=== PATIENT | female | born 1970 | race Caucasian/White ===

== ENCOUNTER → 2021-04-13 | Outpatient (CLI) | payer SELFPAY ==
[~2021-04-13] MED LIST: SODIUM CHLORIDE 0.9% 50 ML IVPB ONE; SODIUM CHLORIDE 0.9% 500 ML 500 ML in EMPTY BAG 1 BAG IV PRN; SOTROVIMAB (EUA) 500 MG in SODIUM CHLORIDE 0.9% 100 ML IVPB NR
[2021-04-13 09:46] VITALS: PULSE 78; RESP 16
[2021-04-13 09:53] VITALS: BP 114/75; TEMP 98.6
== END ==
LOC: PROCWHC3 07:56
PROVIDERS: ATTEND Radiology Diagnostic Radiology
DX: U07.1 COVID-19 (principal); I10 Essential (primary) hypertension
CPT/HCPCS: 96361; Q0247; M0247